=== PATIENT | female | born 1955 | race African-American/Black ===

== ENCOUNTER 2018-10-18 06:32 | Day surgery (SDC) | payer OTHER ==
[2018-10-18 07:26] LABS: ADD MAN DIFF? NO
[2018-10-18 07:28] LABS: BASOPHIL # 0.1 10^3/ul (0.0-0.1); BASOPHILS % 0.5 % (0.0-2.0); EOSINOPHILS # 0.2 10^3/ul (0.0-0.5); EOSINOPHILS % 1.8 % (0.0-7.0); HEMATOCRIT 36.1 % (37.0-47.0); HEMOGLOBIN 11.2 g/dl (12.0-16.0); LYMPHOCYTES # 1.6 10^3/ul (0.8-2.9); LYMPHOCYTES % 17.1 % (15.0-51.0); MEAN CORPUSCULAR HEMOGLOBIN 26.5 pg (29.0-33.0); MEAN CORPUSCULAR VOLUME 85.3 fl (82.0-101.0); MEAN PLATELET VOLUME 10.1 fl (7.4-10.4); MONOCYTE # 0.4 10^3/ul (0.3-0.9); MONOCYTES % 4.8 % (0.0-11.0); NEUTROPHILS % 75.5 % (39.0-77.0); PLATELET COUNT 356 10^3/UL (140-415); RED BLOOD COUNT 4.23 10^6/ul (4.20-5.40); RED CELL DISTRIBUTION WIDTH 14.7 % (11.5-14.5)
[2018-10-18 07:28] LABS: WHITE BLOOD COUNT 9.2 10^3/ul (4.8-10.8)
[2018-10-18] MEDS ORDERED: LIDOCAINE 1% (MDV) 20 ML INJ (07:34)
[2018-10-18] MEDS ORDERED: HEPARIN 1000 UNITS/ML 10 ML INJ (07:34)
[2018-10-18] MEDS ORDERED: IODIXANOL LOCM 100 ML BTL ×2 (07:34→10:24)
[2018-10-18] MEDS ORDERED: NITROGLYCERIN (IC) 100 MCG/ML INJ (07:35)
[2018-10-18] MEDS ORDERED: VERAPAMIL 5 MG INJ (07:35)
[2018-10-18 07:53] LABS: INR 0.86; PROTIME 11.8 Sec (11.9-14.9); PT RATIO 0.9
[2018-10-18 07:54] LABS: PARTIAL THROMBOPLASTIN TIME 28.9 Sec (23.0-35.0)
[2018-10-18 07:57] LABS: ANION GAP 13 (5-13); CALCIUM 9.6 mg/dl (8.4-10.2); CARBON DIOXIDE 23 mmol/L (21-31); CHLORIDE 100 mmol/L (97-110); CHOL/HDL RATIO 4.3 RATIO; CHOLESTEROL 172 mg/dl (100-200); Estimated GFR 50 mL/min (>60); GLUCOSE 233 mg/dl (70-220); HDL CHOLESTEROL 40 mg/dl (35-98); LDL CHOLESTEROL,CALCULATED 98 mg/dl; POTASSIUM 4.8 mmol/L (3.5-5.1); SODIUM 136 mmol/L (135-144); TRIGLYCERIDES 168 mg/dl (0-149)
[2018-10-18 07:59] LABS: BLOOD UREA NITROGEN 39 mg/dl (7-20)
[2018-10-18 08:00] LABS: CREATININE 1.31 mg/dl (0.44-1.00)
[2018-10-18] MEDS ORDERED: MIDAZOLAM 1 MG/ML 2 ML INJ (09:20)
[2018-10-18] MEDS ORDERED: FENTAnyl 50 MCG/ML VIAL (09:20)
[2018-10-18] MEDS: SOD CHLORIDE 0.9% 1,000 ML IV (10:20)
[2018-10-18] MEDS ORDERED: ONDANSETRON 4 MG INJ IV (10:30)
[2018-10-18] MEDS ORDERED: ACETAMINOPHEN 325 MG TAB PO (10:30)
[2018-10-18] MEDS ORDERED: morphine 2 MG INJ IV (10:30)
[2018-10-18] MEDS ORDERED: AL HYDROX/MG HYDROX/SIMETH 30 ML CUP PO (10:30)
[2018-10-18] MEDS: OXYCODONE/ACETAMINOPHEN (5/325) TAB PO (11:21)
== END 2018-10-18 15:48 | disposition home or self-care (01) ==
LOC: CCL 06:32 → SDS 06:32 → CCL 15:48
DX: I25.10 Atherosclerotic heart disease of native coronary artery without angina pectoris (principal); I10 Essential (primary) hypertension; E78.5 Hyperlipidemia, unspecified; E11.9 Type 2 diabetes mellitus without complications; F17.200 Nicotine dependence, unspecified, uncomplicated; I34.0 Nonrheumatic mitral (valve) insufficiency
CPT/HCPCS: 71045; 80048; 80061; 82962; 85025; 85610; 85730; 93005; 93458